=== PATIENT | male | born 1945 | race Caucasian/White ===

== ENCOUNTER → 2018-08-24 | Outpatient (CLI) | payer OTHER | END | disposition home or self-care (01) | LOC: SHCH 09:29 | PROVIDERS: ATTEND Internal Medicine Cardiovascular Disease | DX: I48.0 Paroxysmal atrial fibrillation (principal); E78.5 Hyperlipidemia, unspecified | CPT/HCPCS: 93306 ==

== ENCOUNTER → 2024-08-30 | Outpatient (CLI) | payer OTHER ==
--- NOTE | 2024-08-31 19:17 | HMCSR ---
APPROVED REPORT EXAM: Two-dimensional and M-mode echocardiogram with Doppler and color Doppler. INDICATION ICD: i48.0, r07.9 Atrial Fibrillation RISK FACTORS Hypertension Hyperlipidemia 2D Dimensions RVDd4.2 cmLVEF(%)60.0 (>50%)LVED Vol(simp.)88.0 mL IVSd1.3 (0.7-1.1cm)FS(%)32 %LVES Vol(simp.)41.0 mL LVDd4.2 (3.8-5.6cm)Ao Root(2D)3.7 (2.0-3.7cm)LVEF(%, simp.)54 % PWd1.3 (0.7-1.1cm)LVOT diam2.0 (1.8-2.4cm)LA ESV INDEX (BP)42.39 mL/m2 LVDs2.8 (2.5-4.0cm) Deformation Strain Apical 4-13.1 % Apical 2-9.3 % Apical 3-11.8 % Global Strain-11.4 % Aortic Valve AoV Vmax1.0 m/Donte Peak GR3.9 mmHgLVOT Vmax0.7 m/s AoV VTI0.2 mAo Mean GR2.2 mmHgLVOT VTI0.15 m MARIA DOLORES (VMAX)2.5 cm2AVA (VTI) 2.5 cm2 Mitral Valve MV E Vmax78.0 cm/sDECEL Azxt408 ms MR Max PG94 mmHgP 1/2 T45 ms MVA (PHT)4.8 cm2 Pulmonary Valve PV Vmax0.8 m/sPV VTI0.13 mPV Mean GR1 mmHg PV Peak GR2.3 mmHg Tricuspid Valve TR Vmax2.4 m/sRAP (EST) 8 boJuUAXT75.7 mmHg TR Peak GR22.7 mmHg Left Ventricle The left ventricle structure and function is normal. There is normal LV segmental wall motion. There is mild concentric left ventricular hypertrophy. LVEF is 55-60%. The LV diastolic function was unable to be assessed due to atrial arrhythmia. Right Ventricle The right ventricle is mildly dilated. Right ventricular systolic function is borderline reduced. Atria The left atrium is moderately dilated. The right atrium is moderately dilated. Aortic Valve Aortic valve is trileaflet. Aortic valve leaflets are sclerotic but open well. No aortic regurgitatio n is present. There is no aortic valvular stenosis. Mitral Valve The mitral valve is mildly thickened. Mitral regurgitation is trace. There is no mitral valve stenosi s. Tricuspid Valve The tricuspid valve leaflets appear normal. There is mild tricuspid regurgitation. Right ventricular systolic pressure is estimated at 31 mmHg. Pulmonic Valve Pulmonic valve is not well visualized. There is no pulmonic valvular regurgitation. Great Vessels The aortic root is normal in size. IVC is not well visualized. Pericardium The pericardium appears normal. Conclusion LVEF is 55-60%. There is mild concentric left ventricular hypertrophy. There is normal LV segmental wall motion. The pericardium appears normal.
== END | disposition home or self-care (01) ==
LOC: SHCH 08:40
PROVIDERS: ATTEND Internal Medicine Cardiovascular Disease
DX: I08.3 Combined rheumatic disorders of mitral, aortic and tricuspid valves (principal); I48.0 Paroxysmal atrial fibrillation; E78.5 Hyperlipidemia, unspecified; I11.9 Hypertensive heart disease without heart failure
CPT/HCPCS: 93306; 93356